=== PATIENT | female | born 1940 | race Caucasian/White ===

== ENCOUNTER 2017-11-05 01:34 | Inpatient (IN) | payer MEDICARE, OTHER ==
[~2017-11-05] VITALS: Ht 162.6 cm; Wt 64.4 kg
--- NOTE | 2017-11-05 01:50 | NUR ---
MEDICALLY CLEARED BY DR LUONG
[2017-11-05] MEDS ORDERED: TRAZ-144 PO (01:53)
[2017-11-05] MEDS ORDERED: CLON0.1T PO (01:53)
[2017-11-05] MEDS ORDERED: QUET25TA PO (01:53)
[2017-11-05] MEDS ORDERED: ESTR42.53 VG (01:53)
[2017-11-05] MEDS ORDERED: ATOR10TA PO (01:53)
[2017-11-05] MEDS ORDERED: ASPI-605 PO (01:53)
[2017-11-05] MEDS ORDERED: VALS40TA4 PO (01:53)
[2017-11-05] MEDS ORDERED: LEVE1000 PO (01:53)
[2017-11-05] MEDS ORDERED: NAPR-1009 PO (01:53)
[2017-11-05] MEDS ORDERED: AZAT50TA PO (01:53)
[2017-11-05] MEDS ORDERED: VENL75TA7 PO (01:53)
[2017-11-05] MEDS ORDERED: INDA2.5T5 PO (01:53)
[2017-11-05] MEDS ORDERED: POTA20TA10 PO (01:53)
[2017-11-05] MEDS ORDERED: LEVO75TA7 PO (01:53)
[2017-11-05] MEDS ORDERED: SUCR1TAB PO (01:53)
[2017-11-05] MEDS ORDERED: LORAZEPAM 1 MG TABLET PO PRN ×2 (02:00→11:00)
[2017-11-05] MEDS ORDERED: TEMAZEPAM 7.5 MG CAPSULE PO PRN ×2 (02:00→11:00)
[2017-11-05] MEDS ORDERED: MAGNESIUM HYDROXIDE 30 ML LIQUID UDC PO PRN ×2 (02:00→11:00)
[2017-11-05] MEDS ORDERED: ACETAMINOPHEN 325 MG TABLET PO PRN (02:00)
[2017-11-05] MEDS ORDERED: MAG HYDROX/AL HYDROX/SIMETH 30 ML LIQUID UDC PO PRN ×2 (02:00→11:00)
--- NOTE | 2017-11-05 02:07 | NUR ---
Pt. admitted to [facility] , under care of Dr. Vásquez/Navid Morales. Report to Malvin ADAMES. Belongs List completed
[2017-11-05 03:23] VITALS: BP 167/71
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
--- NOTE | 2017-11-05 06:00 | NUR ---
slept 2.75 hours, total.
[2017-11-05 07:30] VITALS: BP 108/49
[2017-11-05] MEDS ORDERED: AZATHIOPRINE 50 MG TABLET PO SCH (11:15)
[2017-11-05] MEDS ORDERED: INSULIN REGULAR, HUMAN 300 UNIT/3 ML VIAL SQ PRN (11:15)
[2017-11-05] MEDS ORDERED: CLONIDINE HCL 0.1 MG TABLET PO PRN (11:15)
[2017-11-05] MEDS ORDERED: DEXTROSE 50% 50 ML DISP.SYRIN IV PRN (11:15)
[2017-11-05] MEDS: LEVOTHYROXINE SODIUM 75 MCG TABLET PO SCH (11:35)
[2017-11-05] MEDS: SUCRALFATE 1 G TABLET PO SCH ×3 (11:35→21:25)
[2017-11-05] MEDS: ASPIRIN EC 81 MG TABLET.DR PO SCH (11:35)
[2017-11-05] MEDS: POTASSIUM CHLORIDE 20 MEQ TAB.PRT.SR PO SCH (11:35)
[2017-11-05] MEDS: OMEGA-3 FATTY ACIDS/FISH OIL CAPSULE PO SCH (11:36)
[2017-11-05] MEDS: BLOOD SUGAR DIAGNOSTIC 1 EACH STRIP VI SCH ×2 (11:36→17:04)
--- NOTE | 2017-11-05 13:56 | NUR ---
Initial Discharge Instructions: Patient currently lives at home with her daughter, Stephanie and her 3 grandsons [[address] [place] [id number]; [phone]]. Per pt, she would like to return home when ready for discharge. CRISTI will speak with pt's dtr, Stephanie ([phone]) to discuss discharge planning. CRISTI will continue to collaborate with pt, family, and MD regarding appropriate discharge disposition for the patient. SW will form a safe and proper discharge plan.
--- NOTE | 2017-11-05 15:33 | NUR ---
Gps/Orchard Sprayer- Ambulates to the bathroom with fww, sba. slow initiating tasks but able to complete. Encouraged attending her group therapy, stays in bed most of the time.Dr Lopez was in to see patient , spoked to her daughter Stephanie.. Safety continue to review and emphasized
[2017-11-05 17:08] VITALS: BP 112/55
--- NOTE | 2017-11-05 17:30 | NUR ---
Gps/Dulite Machine Bluer- Dr Rivera, Medical Doctor in to see patient, reviewed medications .
[2017-11-05 20:26] VITALS: BP 136/61
[2017-11-05] MEDS: ATORVASTATIN 10 MG TABLET PO SCH (21:25)
[2017-11-05] MEDS: risperiDONE 0.5 MG TABLET PO SCH (21:25)
[2017-11-05] MEDS: TRAZODONE 50 MG TABLET PO SCH (21:26)
--- NOTE | 2017-11-05 22:00 | NUR ---
received to care, lying in bed, isolative, but pleasant upon approach. compliant with medications and staff direction. as of 0, she appears to be asleep. no distress noted. will continue to monitor closely.
--- NOTE | 2017-11-06 06:00 | NUR ---
slept 8.5 hours, total.
[2017-11-06] MEDS: LEVOTHYROXINE SODIUM 75 MCG TABLET PO SCH (06:20)
[2017-11-06 07:21] LABS: BASOPHILS % (AUTO) 0.5 % (0.0-2.0); EOSINOPHILS # (AUTO) 0.1 K/uL (0.0-0.7); EOSINOPHILS % (AUTO) 1.8 % (0.0-7.0); HEMATOCRIT 31.4 % (31.2-41.9); HEMOGLOBIN 10.8 g/dL (10.9-14.3); LYMPHOCYTES # (AUTO) 2.6 K/uL (20.0-40.0); LYMPHOCYTES % (AUTO) 32.3 % (20.5-51.5); MEAN CORPUSCULAR HEMOGLOBIN 31.5 uug (24.7-32.8); MEAN CORPUSCULAR HGB CONC 34 g/dL (32.3-35.6); MEAN CORPUSCULAR VOLUME 91.7 fL (75.5-95.3); MONOCYTES # (AUTO) 0.5 K/uL (2.0-10.0); MONOCYTES % (AUTO) 5.6 % (0.0-11.0); NEUTROPHILS # (AUTO) 4.8 K/uL (1.8-8.9); NEUTROPHILS % (AUTO) 59.8 % (38.5-71.5); PLATELET COUNT (AUTO) 251 K/uL (179-408); RED BLOOD CELL COUNT(AUTO) 3.43 MIL/uL (3.63-4.92); WHITE BLOOD COUNT (AUTO) 8.1 K/uL (3.8-11.8)
[2017-11-06 07:30] VITALS: BP 107/63
[2017-11-06 07:43] LABS: ALANINE AMINOTRANSFERASE 32 U/L (14-59); ALKALINE PHOSPHATASE 70 U/L (50-136); ASPARTATE AMINOTRANSFERASE 26 U/L (15-37); BILIRUBIN,TOTAL 0.3 mg/dL (0.2-1.0); CARBON DIOXIDE 24 mmol/L (21-32); CHLORIDE 105 mmol/L (98-107); CREATININE 0.8 mg/dL (0.6-1.3); GLUCOSE 124 mg/dL (74-106); MAGNESIUM 1.9 mg/dL (1.8-2.4); PHOSPHOROUS 3.3 mg/dL (2.5-4.9); POTASSIUM 3.4 mmol/L (3.5-5.1); TOTAL PROTEIN, SERUM 5.8 g/dL (6.4-8.2); UREA NITROGEN, BLOOD 13 mg/dL (7-18)
[2017-11-06 07:46] LABS: THYROID STIMULATING HORMONE 6.141 mIU/mL (0.358-3.740)
[2017-11-06] MEDS: OMEGA-3 FATTY ACIDS/FISH OIL CAPSULE PO SCH (08:37)
[2017-11-06] MEDS: risperiDONE 0.5 MG TABLET PO SCH ×2 (08:37→21:03)
[2017-11-06] MEDS: SUCRALFATE 1 G TABLET PO SCH ×4 (08:37→21:02)
[2017-11-06] MEDS: POTASSIUM CHLORIDE 20 MEQ TAB.PRT.SR PO SCH (08:37)
[2017-11-06] MEDS: ASPIRIN EC 81 MG TABLET.DR PO SCH (08:37)
[2017-11-06] MEDS ORDERED: VALSARTAN 40 MG TABLET PO SCH (09:00)
--- NOTE | 2017-11-06 12:57 | NUR ---
Gps/Event Mgr- Patient's daughter Stephanie called wanting to visit patient, but called back and changed her mind, will visit tomorrow instead , wants patient to be settled first in the unit before visiting her, patient was informed, no reactions noted.
[2017-11-06] MEDS ORDERED: POTASSIUM CHLORIDE 20 MEQ TAB.PRT.SR PO ONE (15:30)
[2017-11-06 15:47] VITALS: BP 101/50
[2017-11-06 20:46] VITALS: BP 122/62
[2017-11-06] MEDS: ATORVASTATIN 10 MG TABLET PO SCH (21:02)
[2017-11-06] MEDS: TRAZODONE 50 MG TABLET PO SCH (21:02)
--- NOTE | 2017-11-06 21:56 | NUR ---
RECEIVED PATIENT IN HER ROOM AWAKE AND ASKING TO GET HER CLOTHING BECAUSE SHE WANTED TO GO HOME.SHE IS ISOLATIVE AND GUARDED. ALSO IRRITABLE WHEN SHE DOES NOT GET HER WAY.SHE DENIES SI/HI .SHE IS COMPLIANT WITH HER MEDS AND COOPERATIVE WITH STAFF FOR HER CARE .DENIES PAIN OR DISCOMFORT. AT NOW. WILL CONTINUE TO MONITOR.
[2017-11-07 05:35] LABS: *BILIRUBIN,URIN NEGATIVE (NEGATIVE); *BLOOD, URINE 1+ (NEGATIVE); *CLARITY,URINE CLEAR (CLEAR); *COLOR,URINE YELLOW (YELLOW); *KETONES,URINE NEGATIVE (NEGATIVE); *PROTEIN,URINE NEGATIVE (NEGATIVE); *UROBILINOGEN,URINE 0.2 E.U./dl (NORMAL); LEUKOCYTE ESTERASE ,URINE 1+ (NEGATIVE); NITRITE, URINE NEGATIVE (NEGATIVE); PH,URINE 6.5 (5.0-8.0); UGLUCOSE NEGATIVE (NEGATIVE)
[2017-11-07 06:00] LABS: BACTERIA,URINE FEW /HPF (NONE SEEN); SQUAMOUS EPITHELIAL CELL,UR FEW /HPF (NONE SEEN)
[2017-11-07] MEDS: LEVOTHYROXINE SODIUM 75 MCG TABLET PO SCH (06:38)
--- NOTE | 2017-11-07 06:42 | NUR ---
SHE SLEPT FAIRLY WELL DURING THE NIGHT. SHE WOKE UP LATER AND WANTED TO MAKE SURE HER CLOTHES WERE KEPT SAFELY. SHE TOOK HER SWEATER OUT AND LATER WENT BACK TO SLEEP FOR APPROXIMATELY 5;30. WILL CONTINUE TO MONITOR.
[2017-11-07 07:30] VITALS: BP 125/62
[2017-11-07] MEDS: ASPIRIN EC 81 MG TABLET.DR PO SCH (08:13)
[2017-11-07] MEDS: OMEGA-3 FATTY ACIDS/FISH OIL CAPSULE PO SCH (08:13)
[2017-11-07] MEDS: POTASSIUM CHLORIDE 20 MEQ TAB.PRT.SR PO SCH (08:13)
[2017-11-07] MEDS: risperiDONE 0.5 MG TABLET PO SCH ×2 (08:13→20:30)
[2017-11-07] MEDS: SUCRALFATE 1 G TABLET PO SCH ×4 (08:13→20:30)
[2017-11-07] MEDS: ACETAMINOPHEN 325 MG TABLET PO PRN ×2 (12:31→20:38)
--- NOTE | 2017-11-07 14:24 | NUR ---
Gps/Furnace Puncher- Isolative, stayed in her in bed most of the day. Encouraged attending to her group therapy. Noted right hand puffy, noted pt. have difficulty making a fist , tylenol 650 mg. po was given, verbalized have adequate relief .
[2017-11-07 15:47] VITALS: BP 112/45
[2017-11-07 20:26] VITALS: BP 115/58
[2017-11-07] MEDS: ATORVASTATIN 10 MG TABLET PO SCH (20:30)
[2017-11-07] MEDS: TRAZODONE 50 MG TABLET PO SCH (20:30)
--- NOTE | 2017-11-07 23:11 | NUR ---
Requested Tylenol for generalized pain. Given per MD order.
--- NOTE | 2017-11-08 05:46 | NUR ---
Still asleep at this time, no distress noted. Respirations even and unlabored. Frequent checks done to ensure safety.
[2017-11-08] MEDS: LEVOTHYROXINE SODIUM 75 MCG TABLET PO SCH (06:56)
[2017-11-08 07:30] VITALS: BP 120/42
[2017-11-08] MEDS: risperiDONE 0.5 MG TABLET PO SCH ×2 (09:03→20:28)
[2017-11-08] MEDS: OMEGA-3 FATTY ACIDS/FISH OIL CAPSULE PO SCH (09:03)
[2017-11-08] MEDS: ASPIRIN EC 81 MG TABLET.DR PO SCH (09:03)
[2017-11-08] MEDS: SUCRALFATE 1 G TABLET PO SCH ×4 (09:03→20:28)
[2017-11-08] MEDS: POTASSIUM CHLORIDE 20 MEQ TAB.PRT.SR PO SCH (09:03)
--- NOTE | 2017-11-08 10:50 | NUR ---
Firearms Report: E/M Engineer completed and submitted [employer] Firearms Report for 5250 Certification on 11/08/17
[2017-11-08] MEDS: ACETAMINOPHEN 325 MG TABLET PO PRN (13:54)
[2017-11-08 15:39] VITALS: BP 126/49
[2017-11-08 20:12] VITALS: BP 103/58
[2017-11-08] MEDS: TRAZODONE 100 MG TABLET PO SCH (20:28)
[2017-11-08] MEDS: ATORVASTATIN 10 MG TABLET PO SCH (20:28)
[2017-11-09] MEDS: LEVOTHYROXINE SODIUM 75 MCG TABLET PO SCH ×2 (06:11→06:39)
--- NOTE | 2017-11-09 06:43 | NUR ---
SLEPT 9 HOURS DURING SHIFT. NO C/O PAIN. PT REFUSED SYNTHROID IN AM.
[2017-11-09 07:30] VITALS: BP 150/75
[2017-11-09] MEDS: OMEGA-3 FATTY ACIDS/FISH OIL CAPSULE PO SCH (08:24)
[2017-11-09] MEDS: risperiDONE 0.5 MG TABLET PO SCH ×2 (08:24→21:35)
[2017-11-09] MEDS: ASPIRIN EC 81 MG TABLET.DR PO SCH (08:24)
[2017-11-09] MEDS: POTASSIUM CHLORIDE 20 MEQ TAB.PRT.SR PO SCH (08:24)
[2017-11-09] MEDS: SUCRALFATE 1 G TABLET PO SCH ×4 (08:24→21:35)
[2017-11-09 15:38] VITALS: BP 141/57
[2017-11-09 19:30] VITALS: BP 109/43
[2017-11-09] MEDS: TRAZODONE 100 MG TABLET PO SCH (21:35)
[2017-11-09] MEDS: ATORVASTATIN 10 MG TABLET PO SCH (21:35)
--- NOTE | 2017-11-09 22:00 | NUR ---
received to care, lying in bed, isolative, but pleasant upon approach. initially was suspicious and hesitant to take her medications. she eventually was compliant with encouragement of staff, via float phlebotomist. she then ate a snack, and went to sleep. as of 2200, she appears to remain asleep. no distress noted. will continue to monitor closely.
--- NOTE | 2017-11-10 06:00 | NUR ---
slept 10.0 hours, total, but is easy to awaken. refused AM synthroid. will continue to monitor closely.
[2017-11-10] MEDS: LEVOTHYROXINE SODIUM 75 MCG TABLET PO SCH (06:02)
[2017-11-10 08:00] VITALS: BP 102/46
[2017-11-10] MEDS: SUCRALFATE 1 G TABLET PO SCH ×4 (09:00→20:46)
[2017-11-10] MEDS: POTASSIUM CHLORIDE 20 MEQ TAB.PRT.SR PO SCH ×2 (09:00→12:12)
[2017-11-10] MEDS: risperiDONE 0.5 MG TABLET PO SCH ×3 (09:00→20:46)
[2017-11-10] MEDS: OMEGA-3 FATTY ACIDS/FISH OIL CAPSULE PO SCH (09:00)
[2017-11-10] MEDS: SERTRALINE HCL 50 MG TABLET PO SCH (09:21)
[2017-11-10] MEDS: ASPIRIN EC 81 MG TABLET.DR PO SCH (09:21)
--- NOTE | 2017-11-10 12:04 | NUR ---
Spoke with RN about patient's elevated blood sugar . Glucose 124(H), POC 93-183(H), [id number]-9.4, pt has hx of DM. Rec change diet to standard CCHO and cardiac diet. Addendum: 11/10/17 at [address] Amended: Links added.
[2017-11-10 12:09] VITALS: BP 131/55
[2017-11-10 16:00] VITALS: BP 129/64
[2017-11-10 19:30] VITALS: BP 130/59
[2017-11-10] MEDS: ATORVASTATIN 10 MG TABLET PO SCH (20:46)
[2017-11-10] MEDS: TRAZODONE 100 MG TABLET PO SCH (20:46)
[2017-11-10] MEDS: MIRTAZAPINE 15 MG TABLET PO SCH (21:00)
--- NOTE | 2017-11-10 23:00 | NUR ---
received to care, lying in bed, isolative, but pleasant upon approach. compliant with medications and staff direction. Dr Lopez was in to see patient, and ordered remeron, to be started, tonight, but pt was already asleep, when it was offered, so it was held. as of 2299, she remains asleep. no distress noted. will continue to monitor closely.
--- NOTE | 2017-11-11 06:00 | NUR ---
slept 9.5 hours, total. continues to sleep. no distress noted.
[2017-11-11] MEDS: LEVOTHYROXINE SODIUM 75 MCG TABLET PO SCH (06:08)
[2017-11-11 08:00] VITALS: BP 102/63
[2017-11-11] MEDS: risperiDONE 0.5 MG TABLET PO SCH ×2 (09:21→20:57)
[2017-11-11] MEDS: OMEGA-3 FATTY ACIDS/FISH OIL CAPSULE PO SCH (09:21)
[2017-11-11] MEDS: ASPIRIN EC 81 MG TABLET.DR PO SCH (09:21)
[2017-11-11] MEDS: SERTRALINE HCL 50 MG TABLET PO SCH (09:21)
[2017-11-11] MEDS: POTASSIUM CHLORIDE 20 MEQ TAB.PRT.SR PO SCH (09:21)
[2017-11-11] MEDS: SUCRALFATE 1 G TABLET PO SCH ×4 (09:21→20:57)
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
[2017-11-11] MEDS: ACETAMINOPHEN 325 MG TABLET PO PRN (13:43)
[2017-11-11 16:00] VITALS: BP 133/67
--- NOTE | 2017-11-11 20:00 | NUR ---
PT RECEIVED IN HER ROOM AWAKE, DENIES SI/HI/PAIN, NO INTERACTION WITH PEERS NOTED, FLAT AND DEPRESSED MOOD. MED COMPLIANT, CONTINUE TO MONITOR CLOSELY
[2017-11-11 20:56] VITALS: BP 121/65
[2017-11-11] MEDS: MIRTAZAPINE 15 MG TABLET PO SCH (20:57)
[2017-11-11] MEDS: ATORVASTATIN 10 MG TABLET PO SCH (20:57)
[2017-11-12] MEDS: LEVOTHYROXINE SODIUM 75 MCG TABLET PO SCH (06:34)
[2017-11-12 07:30] VITALS: BP 135/58
[2017-11-12] MEDS: SUCRALFATE 1 G TABLET PO SCH ×4 (08:09→20:36)
[2017-11-12] MEDS: ASPIRIN EC 81 MG TABLET.DR PO SCH (08:09)
[2017-11-12] MEDS: OMEGA-3 FATTY ACIDS/FISH OIL CAPSULE PO SCH (08:09)
[2017-11-12] MEDS: FLUVOXAMINE MALEATE 25 MG TABLET PO SCH ×3 (08:09→16:57)
[2017-11-12] MEDS: risperiDONE 0.5 MG TABLET PO SCH (08:10)
[2017-11-12] MEDS: AZATHIOPRINE 50 MG TABLET PO SCH (08:10)
[2017-11-12] MEDS: ACETAMINOPHEN 325 MG TABLET PO PRN (08:33)
[2017-11-12 09:57] LABS: CARBON DIOXIDE 29 mmol/L (21-32); CHLORIDE 106 mmol/L (98-107); CREATININE 0.7 mg/dL (0.6-1.3); GLUCOSE 210 mg/dL (74-106); POTASSIUM 3.2 mmol/L (3.5-5.1); UREA NITROGEN, BLOOD 14 mg/dL (7-18)
[2017-11-12] MEDS: POTASSIUM CHLORIDE 20 MEQ TAB.PRT.SR PO SCH (11:21)
--- NOTE | 2017-11-12 13:13 | NUR ---
Discharge Planning Note: SW placed follow-up call to patient's son, Ned ([phone]) to discuss discharge planning. Per son, he would like pt to go to [facility] (see this sign writer letterer or painter's notes for address) for a short time until she is ready to return home with him. Son stated that he is going to talk with the rest of his family this weekend to confirm the plan. Plan: Son agreed to have decision on Wednesday when SW will follow-up with him.
[2017-11-12 15:46] VITALS: BP 150/64
[2017-11-12] MEDS: ATORVASTATIN 10 MG TABLET PO SCH (20:36)
[2017-11-12] MEDS: MIRTAZAPINE 15 MG TABLET PO SCH (20:36)
[2017-11-12] MEDS: risperiDONE 1 MG TABLET PO SCH (20:38)
[2017-11-12] MEDS ORDERED: risperiDONE 0.5 MG TABLET PO SCH (21:00)
[2017-11-12 21:36] VITALS: BP 144/62
[2017-11-13] MEDS: LEVOTHYROXINE SODIUM 75 MCG TABLET PO SCH (06:33)
[2017-11-13 07:30] VITALS: BP 132/60
[2017-11-13] MEDS: FLUVOXAMINE MALEATE 25 MG TABLET PO SCH ×3 (09:15→18:27)
[2017-11-13] MEDS: SUCRALFATE 1 G TABLET PO SCH ×4 (09:15→21:52)
[2017-11-13] MEDS: POTASSIUM CHLORIDE 20 MEQ TAB.PRT.SR PO SCH (09:15)
[2017-11-13] MEDS: OMEGA-3 FATTY ACIDS/FISH OIL CAPSULE PO SCH (09:15)
[2017-11-13] MEDS: ASPIRIN EC 81 MG TABLET.DR PO SCH (09:15)
[2017-11-13] MEDS: risperiDONE 0.5 MG TABLET PO SCH (09:15)
[2017-11-13] MEDS: AZATHIOPRINE 50 MG TABLET PO SCH (09:16)
--- NOTE | 2017-11-13 14:33 | NUR ---
GPS/RN- Dr Rivera Ordered stat EKG, notified of results. no new orders
[2017-11-13 17:12] VITALS: BP 165/52
[2017-11-13 20:00] VITALS: BP 115/60
[2017-11-13] MEDS: ATORVASTATIN 10 MG TABLET PO SCH (21:52)
[2017-11-13] MEDS: risperiDONE 1 MG TABLET PO SCH (21:52)
[2017-11-13] MEDS: MIRTAZAPINE 15 MG TABLET PO SCH (21:52)
[2017-11-14] MEDS: LEVOTHYROXINE SODIUM 75 MCG TABLET PO SCH (06:58)
[2017-11-14 07:30] VITALS: BP 139/59
[2017-11-14] MEDS: POTASSIUM CHLORIDE 20 MEQ TAB.PRT.SR PO SCH (08:03)
[2017-11-14] MEDS: AZATHIOPRINE 50 MG TABLET PO SCH (08:03)
[2017-11-14] MEDS: ASPIRIN EC 81 MG TABLET.DR PO SCH (08:03)
[2017-11-14] MEDS: risperiDONE 0.5 MG TABLET PO SCH (08:03)
[2017-11-14] MEDS: FLUVOXAMINE MALEATE 25 MG TABLET PO SCH ×3 (08:03→17:00)
[2017-11-14] MEDS: SUCRALFATE 1 G TABLET PO SCH ×4 (08:03→20:47)
[2017-11-14] MEDS: OMEGA-3 FATTY ACIDS/FISH OIL CAPSULE PO SCH (08:03)
[2017-11-14] MEDS: ACETAMINOPHEN 325 MG TABLET PO PRN ×2 (10:31→12:21)
[2017-11-14 15:32] VITALS: BP 124/50
[2017-11-14 20:00] VITALS: BP 143/53
[2017-11-14] MEDS: MIRTAZAPINE 15 MG TABLET PO SCH (20:46)
[2017-11-14] MEDS: risperiDONE 1 MG TABLET PO SCH (20:46)
[2017-11-14] MEDS: ATORVASTATIN 10 MG TABLET PO SCH (20:46)
[2017-11-15] MEDS: LEVOTHYROXINE SODIUM 75 MCG TABLET PO SCH (06:40)
[2017-11-15 07:30] VITALS: BP 138/59
[2017-11-15] MEDS: AZATHIOPRINE 50 MG TABLET PO SCH (08:02)
[2017-11-15] MEDS: ASPIRIN EC 81 MG TABLET.DR PO SCH (08:02)
[2017-11-15] MEDS: OMEGA-3 FATTY ACIDS/FISH OIL CAPSULE PO SCH (08:02)
[2017-11-15] MEDS: FLUVOXAMINE MALEATE 25 MG TABLET PO SCH ×3 (08:02→16:28)
[2017-11-15] MEDS: SUCRALFATE 1 G TABLET PO SCH ×4 (08:02→21:00)
[2017-11-15] MEDS: risperiDONE 0.5 MG TABLET PO SCH (08:03)
[2017-11-15] MEDS: POTASSIUM CHLORIDE 20 MEQ TAB.PRT.SR PO SCH (08:03)
[2017-11-15] MEDS: BENAZEPRIL HCL 5 MG TABLET PO SCH (08:03)
[2017-11-15 16:34] VITALS: BP 130/53
[2017-11-15 19:30] VITALS: BP 122/40
[2017-11-15] MEDS: risperiDONE 1 MG TABLET PO SCH (21:00)
[2017-11-15] MEDS: MIRTAZAPINE 15 MG TABLET PO SCH (21:00)
[2017-11-15] MEDS: ATORVASTATIN 10 MG TABLET PO SCH (21:00)
[2017-11-16] MEDS: LEVOTHYROXINE SODIUM 75 MCG TABLET PO SCH (06:17)
[2017-11-16 07:30] VITALS: BP 149/55
[2017-11-16] MEDS: SUCRALFATE 1 G TABLET PO SCH ×4 (08:58→20:05)
[2017-11-16] MEDS: BENAZEPRIL HCL 5 MG TABLET PO SCH (09:00)
[2017-11-16] MEDS: AZATHIOPRINE 50 MG TABLET PO SCH (09:00)
[2017-11-16] MEDS: ASPIRIN EC 81 MG TABLET.DR PO SCH (09:00)
[2017-11-16] MEDS: risperiDONE 0.5 MG TABLET PO SCH (09:00)
[2017-11-16] MEDS: FLUVOXAMINE MALEATE 25 MG TABLET PO SCH ×2 (09:00→14:00)
[2017-11-16] MEDS: POTASSIUM CHLORIDE 20 MEQ TAB.PRT.SR PO SCH (09:00)
[2017-11-16 16:30] VITALS: BP 136/64
[2017-11-16] MEDS ORDERED: FLUVOXAMINE MALEATE 25 MG TABLET PO ONE (18:00)
[2017-11-16 19:53] VITALS: BP 113/46
[2017-11-16] MEDS: ATORVASTATIN 10 MG TABLET PO SCH (20:05)
[2017-11-16] MEDS: risperiDONE 1 MG TABLET PO SCH (20:05)
[2017-11-16] MEDS: FLUVOXAMINE MALEATE 50 MG TABLET PO SCH (20:05)
[2017-11-16] MEDS: MIRTAZAPINE 15 MG TABLET PO SCH (20:06)
[2017-11-17] MEDS: LEVOTHYROXINE SODIUM 75 MCG TABLET PO SCH (06:22)
--- NOTE | 2017-11-17 06:23 | NUR ---
GPS: Pt.refused her Synthroid 75mcg at this time despite explanation of importance. Informed staff that she vomitted x2 inside the toilet during the night. Denies further vomitting episodes after that. No abdominal discomfort noted at this time. Instructed to call staff next time she has an episode so staff can assess. Will continue to monitor.
[2017-11-17 08:00] VITALS: BP 149/67
[2017-11-17] MEDS: POTASSIUM CHLORIDE 20 MEQ TAB.PRT.SR PO SCH (08:27)
[2017-11-17] MEDS: ASPIRIN EC 81 MG TABLET.DR PO SCH (08:28)
[2017-11-17] MEDS: FLUVOXAMINE MALEATE 25 MG TABLET PO SCH ×2 (08:28→12:20)
[2017-11-17] MEDS: BENAZEPRIL HCL 5 MG TABLET PO SCH (08:28)
[2017-11-17] MEDS: AZATHIOPRINE 50 MG TABLET PO SCH (08:28)
[2017-11-17] MEDS: risperiDONE 0.5 MG TABLET PO SCH (08:28)
[2017-11-17] MEDS: SUCRALFATE 1 G TABLET PO SCH ×4 (08:28→20:38)
[2017-11-17 16:00] VITALS: BP 104/51
[2017-11-17 20:20] VITALS: BP 133/67
[2017-11-17] MEDS: FLUVOXAMINE MALEATE 50 MG TABLET PO SCH (20:38)
[2017-11-17] MEDS: risperiDONE 1 MG TABLET PO SCH (20:38)
[2017-11-17] MEDS: MIRTAZAPINE 15 MG TABLET PO SCH (20:38)
[2017-11-17] MEDS: ATORVASTATIN 10 MG TABLET PO SCH (20:38)
[2017-11-18] MEDS: LEVOTHYROXINE SODIUM 75 MCG TABLET PO SCH (06:22)
[2017-11-18 07:30] VITALS: BP 137/66
--- NOTE | 2017-11-18 07:50 | NUR ---
RECEIVED A 76 Y/O FEMALE PT, LYING IN BED SEEMS CALM, PLEASANT, BUT ISOLATIVE, WALKS STEADY AND GETS TO OWN NEEDS. PLANS TO BE DISCHARGED TODAY
[2017-11-18] MEDS: ASPIRIN EC 81 MG TABLET.DR PO SCH (08:46)
[2017-11-18] MEDS: SUCRALFATE 1 G TABLET PO SCH ×4 (08:46→20:38)
[2017-11-18] MEDS: POTASSIUM CHLORIDE 20 MEQ TAB.PRT.SR PO SCH (08:46)
[2017-11-18] MEDS: FLUVOXAMINE MALEATE 25 MG TABLET PO SCH ×2 (08:47→12:03)
[2017-11-18] MEDS: BENAZEPRIL HCL 5 MG TABLET PO SCH (08:47)
[2017-11-18] MEDS: risperiDONE 0.5 MG TABLET PO SCH (08:48)
--- NOTE | 2017-11-18 09:01 | NUR ---
PT RECEIVED HER BREAKFAST TOLERATED WELL, FOLLOWED BY ALL HER DUE MEDICATION , WAS VERY COMPLIANT
--- NOTE | 2017-11-18 11:02 | NUR ---
Discharge Note: Patient will be discharged to [facility] [[address] [place] [address]; [phone]] via private transportation at 3pm. Spoke with Rosemary at the facility who states they are willing to provide transportation and are ready to accept the patient today. Spoke with pts son, Ned ([phone]) who is aware and agreeable with discharge plans. Patient is alert and oriented x3 and is denying SI/HI. She is aware and agreeable with discharge plans. Patient will continue to follow-up at the facility with Dr. Lazar (Cut Off Saw Operator Pipe Blanks) and Dr. Moreno (Psychiatrist).
[2017-11-18] MEDS: AZATHIOPRINE 50 MG TABLET PO SCH (11:50)
--- NOTE | 2017-11-18 15:10 | NUR ---
FULL REPORT GIVEN TO MCKENZIE WANG TO NURSE ' KARL' , PATIENT BEING PREPARED FOR TRANSFER. AWAITING TRANSPORTATION.
[2017-11-18 16:27] VITALS: BP 167/69
--- NOTE | 2017-11-18 19:28 | NUR ---
PATIENT FOR TRANSFER AWAITING FOR TRANSPORTATION, AND REPORT GIVEN TO PRECISION LENS GRINDER APPRENTICE PSYCH
[2017-11-18 20:00] VITALS: BP 146/66
[2017-11-18] MEDS: MIRTAZAPINE 15 MG TABLET PO SCH (20:38)
[2017-11-18] MEDS: ATORVASTATIN 10 MG TABLET PO SCH (20:38)
[2017-11-18] MEDS: FLUVOXAMINE MALEATE 50 MG TABLET PO SCH (20:38)
[2017-11-18] MEDS: risperiDONE 1 MG TABLET PO SCH (20:38)
--- NOTE | 2017-11-18 21:09 | NUR ---
GPS: Discharge Note: Patient discharged to [facility] [[address] [place] [address]; [phone]] via private transportation at 2100 PM Accompanied via carlos forde advance scout from [facility].Daughter Claire Peterson made aware patient discharged to [facility]. Patient is alert and oriented x3 and is denying SI/HI. no c/o pain or discomfort at this time. plesant upon approach. b/p 146/66 hr 77 temp 98.4 resp 18 sat 98% in room air. Patient will continue to follow-up at the facility with Dr. Lazar ([employer] Brusher) and Dr. Moreno (Psychiatrist).
[2017-11-19] MEDS ORDERED: LEVOTHYROXINE SODIUM 75 MCG TABLET PO SCH (07:00)
[2017-11-19] MEDS ORDERED: LEVOTHYROXINE SODIUM 100 MCG TABLET PO SCH (07:00)
== END 2017-11-18 21:11 | DRG 885 ==
LOC: ER 01:39 → GPS 01:55
PROVIDERS: ADMIT Psychiatry & Neurology Psychiatry; ATTEND Internal Medicine
DX: F29 Unspecified psychosis not due to a substance or known physiological condition (principal); E11.65 Type 2 diabetes mellitus with hyperglycemia; G93.40 Encephalopathy, unspecified; M35.2 Behcet's disease; E46 Unspecified protein-calorie malnutrition; F32.9 Major depressive disorder, single episode, unspecified; G40.409 Other generalized epilepsy and epileptic syndromes, not intractable, without status epilepticus; I49.5 Sick sinus syndrome; Z95.0 Presence of cardiac pacemaker; Z82.49 Family history of ischemic heart disease and other diseases of the circulatory system; Z79.82 Long term (current) use of aspirin; Z79.899 Other long term (current) drug therapy; E03.9 Hypothyroidism, unspecified; I25.10 Atherosclerotic heart disease of native coronary artery without angina pectoris; K21.9 Gastro-esophageal reflux disease without esophagitis; Z87.11 Personal history of peptic ulcer disease; D63.8 Anemia in other chronic diseases classified elsewhere; Z68.24 Body mass index [BMI] 24.0-24.9, adult; E87.6 Hypokalemia; E78.5 Hyperlipidemia, unspecified; I10 Essential (primary) hypertension; F03.90 Unspecified dementia, unspecified severity, without behavioral disturbance, psychotic disturbance, mood disturbance, and anxiety
CPT/HCPCS: 36415; 83735; 84100; 84443; 85025; 87086; 93005; A4663; J1815; J7500